=== PATIENT | male | born 1955 | race Two or more races ===

== ENCOUNTER 2020-08-22 20:41 | Emergency (ER) | payer OTHER ==
[~2020-08-22] VITALS: Ht 177.8 cm; Wt 86.2 kg
[2020-08-22 21:40] LABS: BASOPHILS % (AUTO) 0.3 % (0.0-2.0); HEMATOCRIT 45 % (39-51); HEMOGLOBIN 14.8 g/dL (13.5-17.5); LYMPHOCYTES # (AUTO) 2.1 /CMM (0.8-4.8); LYMPHOCYTES % (AUTO) 32.6 % (20.0-44.0); MEAN CORPUSCULAR HGB CONC 33 g/dl (31.0-36.0); MEAN CORPUSCULAR VOLUME 94 fL (80-96); MONOCYTES # (AUTO) 0.5 /CMM (0.1-1.30); MONOCYTES % (AUTO) 7.8 % (2.0-12.0); NEUTROPHILS # (AUTO) 3.8 /CMM (1.8-8.9); NEUTROPHILS % (AUTO) 57.3 % (43.0-81.0); PLATELET COUNT (AUTO) 174 /CMM (150-450); WHITE BLOOD COUNT (AUTO) 6.6 K/uL (4.3-11.0)
--- NOTE | 2020-08-22 21:41 | NUR ---
PATIENT CAME TO THE ER [facility] FROM HOME C/O ANXIETY. PATIENT STATES THAT HE WAS SO ANXIOUS AND IS HEARING CAR NOISES BECAUSE HE LIVES CLOSE TO THE STREETS. PATIENT IS AAOX4. NO SOB .BREATHING EVENLY AND UNLABORED ON ROOM AIR. CONNECTED TO THE MONITOR.
[2020-08-22 21:42] LABS: BILIRUBIN,URINE SMALL (NEGATIVE); COLOR,URINE YELLOW (YELLOW); LEUKOCYTE ESTERASE ,URINE NEGATIVE (NEGATIVE); NITRITE, URINE NEGATIVE (NEGATIVE); PH,URINE 5.5 (5.0-8.0); PROTEIN,URINE NEGATIVE (NEGATIVE); UGLUCOSE NEGATIVE (NEGATIVE); UROBILINOGEN,URINE 0.2 EU/dL (0.2)
--- NOTE | 2020-08-22 21:42 | NUR ---
PATIENT STATES, " WHEN I WAS AT HOME, I HAD THOUGHT TO TAKE ALL THE PILLS OF TYLENOL."
[2020-08-22 21:51] LABS: CALCIUM, SERUM 9.2 mg/dL (8.5-10.1); CARBON DIOXIDE 27 mmol/L (21-32); CHLORIDE 108 mmol/L (98-107); CREATININE 1.2 mg/dL (0.6-1.3); GLUCOSE 107 mg/dL (74-106); POTASSIUM 3.5 mmol/L (3.5-5.1); SODIUM SERUM 146 mmol/L (136-145); UREA NITROGEN, BLOOD 25 mg/dL (7-18)
[2020-08-22 21:56] LABS: ALANINE AMINOTRANSFERASE 41 U/L (12-78); ALBUMIN 3.8 g/dL (3.4-5.0); ALCOHOL, BLOOD < 3 mg/dL (0-0); ALKALINE PHOSPHATASE 92 U/L (46-116); ASPARTATE AMINOTRANSFERASE 28 U/L (15-37); BILIRUBIN,DIRECT 0.2 mg/dL (0.0-0.2); BILIRUBIN,TOTAL 0.6 mg/dL (0.2-1.0); TOTAL PROTEIN, SERUM 6.8 g/dL (6.4-8.2)
[2020-08-22 21:59] LABS: ACETAMINOPHEN 0 ug/ml (10-30)
[2020-08-22] MEDS ORDERED: LORA-258 PO (23:48)
--- NOTE | 2020-08-23 00:22 | NUR ---
PATIENT DENIES SI/HI.
--- NOTE | 2020-08-23 00:52 | NUR ---
Patient discharged to home in stable condition. Written and verbal after care instructions given. Patient verbalizes understanding of instruction.
--- NOTE | 2020-08-23 00:52 | NUR ---
PATIENT REFUSED ALL SERVICES AND WANTS TO GO HOME BY FOOT. PATIENT PROVIDED WITH MAP ON GETTING HOME.
[2020-08-23 00:53] VITALS: BP 127/75
== END 2020-08-23 00:53 | disposition home or self-care (01) ==
LOC: ER 20:43
DX: F41.9 Anxiety disorder, unspecified (principal)
CPT/HCPCS: 36415; 80048-TC; 80076-TC; 85025-TC; G0480

== ENCOUNTER 2022-08-06 14:54 | Emergency (ER) | payer OTHER ==
[~2022-08-06] VITALS: Ht 172.7 cm; Wt 72.6 kg
[~2022-08-06 14:54] MED LIST: LORA-258 PO
--- NOTE | 2022-08-06 16:00 | NUR ---
the patient had MRI of the brain with and without contrast, he developed rash since then. Benadryl 50 mg IM x 1 given in the field.
--- NOTE | 2022-08-06 16:17 | NUR ---
Dr. Ervin at bedside
[2022-08-06] MEDS ORDERED: diphenhydrAMINE HCL 50 MG/ML VIAL IV ONE (16:30)
[2022-08-06] MEDS ORDERED: FAMOTIDINE/PF INJ 20 MG/2 ML VIAL IV ONE ×2 (16:30→16:46)
[2022-08-06] MEDS ORDERED: methylPREDNISolone SOD SUCC 125 MG/2ML VIAL IV ONE (16:30)
[2022-08-06] MEDS ORDERED: IV NS 0.9% 1,000 ML BAG IV ONE (16:30)
--- NOTE | 2022-08-06 16:32 | NUR ---
Blood drawn and sent to lab.
[2022-08-06] MEDS ORDERED: diphenhydrAMINE HCL 50 MG/ML VIAL ONE (16:46)
[2022-08-06] MEDS ORDERED: methylPREDNISolone SOD SUCC 125 MG/2ML VIAL ONE (16:46)
[2022-08-06 17:15] LABS: BASOPHILS % (AUTO) 0.1 % (0.0-2.0); EOSINOPHILS % (AUTO) 6.9 % (0.0-6.0); HEMATOCRIT 45 % (39-51); HEMOGLOBIN 14.2 g/dL (13.5-17.5); LYMPHOCYTES # (AUTO) 1.2 K/uL (0.8-4.8); LYMPHOCYTES % (AUTO) 17.6 % (20.0-44.0); MEAN CORPUSCULAR HGB CONC 32 g/dl (31.0-36.0); MEAN CORPUSCULAR VOLUME 92 fL (80-96); MONOCYTES # (AUTO) 0.6 K/uL (0.1-1.30); MONOCYTES % (AUTO) 9.4 % (2.0-12.0); NEUTROPHILS # (AUTO) 4.4 K/uL (1.8-8.9); PLATELET COUNT (AUTO) 260 K/uL (150-450); RED BLOOD CELL COUNT(AUTO) 4.84 MIL/uL (4.5-6.0); WHITE BLOOD COUNT (AUTO) 6.7 K/uL (4.3-11.0)
--- NOTE | 2022-08-06 17:59 | NUR ---
CALLED [facility] TO OPEN UP A CASE FOR THE PT
[2022-08-06 18:15] LABS: CALCIUM, SERUM 9.3 mg/dL (8.5-10.1); CREATININE 1.3 mg/dL (0.6-1.3)
[2022-08-06 18:26] LABS: ALBUMIN 2.9 g/dL (3.4-5.0); BILIRUBIN,DIRECT 0.1 mg/dL (0.0-0.2); BILIRUBIN,TOTAL 0.5 mg/dL (0.2-1.0)
--- NOTE | 2022-08-06 18:42 | NUR ---
CALLED MIRIAM JACKSON MD TO CONSULT
--- NOTE | 2022-08-06 19:08 | NUR ---
Dr. Ervin at bedside re-eval
--- NOTE | 2022-08-06 19:17 | NUR ---
Randell hubbard in [facility] - 08/06/22 at 1918 by EDY CALLED [facility]IR[facility] AND SET UP BS TRANSPORT HOME
--- NOTE | 2022-08-06 19:18 | NUR ---
CALLED [facility] AND SET UP BLS TRANSPORT HOME NO ETA GIVEN AT THIS TIME WILL RECEIVE A CALL BACK WITH ETA
[2022-08-06] MEDS ORDERED: PRED50TA PO (20:15)
[2022-08-06] MEDS ORDERED: FAMO-131 PO (20:15)
--- NOTE | 2022-08-06 21:31 | NUR ---
CALLED [facility] FOLLOWED UP WITH TRANSPORTATION.
--- NOTE | 2022-08-06 21:43 | NUR ---
[facility] TRANSFER ETA [id number]
--- NOTE | 2022-08-06 22:51 | NUR ---
REPORT GIVEN TO [facility] JOCELYN JOHNSON OF [address]. CALLED [facility] THAT PT IS GOING BACK HOME
[2022-08-06 22:52] VITALS: BP 117/75
== END 2022-08-06 22:53 | disposition home or self-care (01) ==
LOC: ER 14:59
DX: L27.0 Generalized skin eruption due to drugs and medicaments taken internally (principal); T50.8X5A Adverse effect of diagnostic agents, initial encounter; Y92.89 Other specified places as the place of occurrence of the external cause; E86.0 Dehydration; Z20.822 Contact with and (suspected) exposure to COVID-19; I10 Essential (primary) hypertension; F99 Mental disorder, not otherwise specified
CPT/HCPCS: 99285; 96374; 71045; 96375; 96361; 87426; 93005; 85025; 80048; 80076; 36415; J1200; J3490; J2930; J7030; C9803

== ENCOUNTER 2024-06-30 10:30 | Emergency (ER) | payer OTHER ==
[~2024-06-30] VITALS: Ht 182.9 cm; Wt 65.3 kg
[~2024-06-30 10:30] MED LIST changes: +FAMO-131 PO; +PRED50TA PO
[2024-06-30] MEDS: IV NS 0.9% 1,000 ML BAG IV ONE (11:10)
[2024-06-30 11:18] LABS: ABG BASE EXCESS -3.4 mmol/L (-2.0-3.0); ABG OXYGEN SATURATION 93.8 % (94.0-98.0); ABG PCO2 33.1 mmHg (35.0-48.0); ABG PH 7.406 (7.350-7.450); ABG PO2 72.1 mmHg (83.0-108.0); ABG TOTAL HEMOGLOBIN 15.4 G/dL (13.5-17.5); COHb 0.7 % (0.5-1.5); MetHb 0.3 % (0.0-1.5); O2Hb 92.9 % (94.0-97.0); SITE, ABG RIGHT RADIAL
[2024-06-30 11:24] LABS: BASOPHILS % (AUTO) 0.4 % (0.0-2.0); EOSINOPHILS # (AUTO) 0.1 K/uL (0.0-0.7); EOSINOPHILS % (AUTO) 1.5 % (0.0-6.0); HEMATOCRIT 45 % (39-51); HEMOGLOBIN 15.1 g/dL (13.5-17.5); LYMPHOCYTES # (AUTO) 1.8 K/uL (0.8-4.8); LYMPHOCYTES % (AUTO) 20.2 % (20.0-44.0); MEAN CORPUSCULAR HEMOGLOBIN 31 PG (26.0-33.0); MEAN CORPUSCULAR HGB CONC 34 g/dl (31.0-36.0); MEAN CORPUSCULAR VOLUME 92 fL (80-96); MONOCYTES # (AUTO) 0.6 K/uL (0.1-1.30); NEUTROPHILS # (AUTO) 6.4 K/uL (1.8-8.9); NEUTROPHILS % (AUTO) 70.9 % (43.0-81.0); PLATELET COUNT (AUTO) 231 K/uL (150-450); RED BLOOD CELL COUNT(AUTO) 4.87 MIL/uL (4.5-6.0); RED CELL DISTRIBUTION WIDTH 13.7 % (11.5-15.0)
[2024-06-30 11:41] LABS: LACTIC ACID 1.7 mmol/L (0.4-2.0)
[2024-06-30 11:44] LABS: CALCIUM, SERUM 9.6 mg/dL (8.5-10.1); CARBON DIOXIDE 27 mmol/L (21-32); CHLORIDE 102 mmol/L (98-107); GLUCOSE 78 mg/dL (74-106); POTASSIUM 4.7 mmol/L (3.5-5.1); SODIUM SERUM 138 mmol/L (136-145); UREA NITROGEN, BLOOD 22 mg/dL (7-18)
[2024-06-30 11:45] LABS: INR 1.08 (0.91-1.10); PARTIAL THROMBOPLASTIN TIME 29.4 SEC (24.3-34.3); PROTHROMBIN TIME 11.4 SECS (9.2-11.1)
[2024-06-30 11:49] LABS: SERUM AMMONIA 13 umol/L (11-32)
[2024-06-30 12:00] VITALS: BP 131/91; TEMP 98; O2SAT 97
[2024-06-30 12:00] LABS: ALANINE AMINOTRANSFERASE 32 U/L (12-78); ALBUMIN 4.1 g/dL (3.4-5.0); ALCOHOL, BLOOD < 3 mg/dL (0-10); ALKALINE PHOSPHATASE 128 U/L (46-116); ASPARTATE AMINOTRANSFERASE 25 U/L (15-37); BILIRUBIN,DIRECT 0.2 mg/dL (0.0-0.2); BILIRUBIN,TOTAL 0.9 mg/dL (0.2-1.0); TOTAL PROTEIN, SERUM 7.4 g/dL (6.4-8.2)
[2024-06-30 12:01] LABS: ACETAMINOPHEN <10 ug/ml (10-30); SALICYLATE < 0.2 mg/dL (2.8-20.0)
[2024-06-30 14:37] LABS: APPEARANCE,URINE CLEAR (CLEAR); BILIRUBIN,URINE NEGATIVE (NEGATIVE); BLOOD, URINE NEGATIVE Ery/uL (NEGATIVE); COLOR,URINE YELLOW (YELLOW); KETONES,URINE 1+ mg/dL (NEGATIVE); LEUKOCYTE ESTERASE ,URINE NEGATIVE (NEGATIVE); NITRITE, URINE NEGATIVE (NEGATIVE); PROTEIN,URINE NEGATIVE (NEGATIVE); UGLUCOSE NEGATIVE (NEGATIVE); UROBILINOGEN,URINE 0.2 EU/dL (0.2)
[2024-06-30 14:51] LABS: AMPHETAMINE, URINE NEGATIVE (NEGATIVE); BARBITURATE, URINE NEGATIVE (NEGATIVE); BENZODIAZEPINE, URINE NEGATIVE (NEGATIVE); CANNABINOID, URINE NEGATIVE (NEGATIVE); COCCAINE, URINE NEGATIVE (NEGATIVE); OPIATE, URINE NEGATIVE (NEGATIVE); PHENCYCLIDINE SCREEN,URINE NEGATIVE (NEGATIVE)
[2024-06-30 14:58] LABS: ADD URINE CULTURE NO; BACTERIA,URINE Rare /HPF (None Seen); RBC,URINE 0-2 /HPF (0-2); SQUAMOUS EPITHELIAL CELL,UR None Seen /HPF (None Seen); WBC,URINE 0-2 /HPF (0-3)
== END 2024-06-30 14:49 ==
LOC: ER 10:35
DX: R62.7 Adult failure to thrive (principal); R53.1 Weakness; F03.90 Unspecified dementia, unspecified severity, without behavioral disturbance, psychotic disturbance, mood disturbance, and anxiety; G93.41 Metabolic encephalopathy; I10 Essential (primary) hypertension; I48.91 Unspecified atrial fibrillation; I69.354 Hemiplegia and hemiparesis following cerebral infarction affecting left non-dominant side; J44.9 Chronic obstructive pulmonary disease, unspecified; Z79.52 Long term (current) use of systemic steroids; Z86.79 Personal history of other diseases of the circulatory system; Z20.822 Contact with and (suspected) exposure to COVID-19
CPT/HCPCS: 99285; 96360; 93005; 82803; 71045; 70450; 82140; 85025; 80048; 87040 ×2; 87086; 87804; 83605; 80076; 81001; 36415; 84443; 85730; 82962; 36600; 87426; 80143; 80320; 80307; J7030; A4223; G0480